=== PATIENT | male | born 1965 | race Caucasian/White ===

== ENCOUNTER → 2025-03-13 11:15 | Outpatient (REF) | payer SELFPAY | LOC: RCS 11:15 | PROVIDERS: ATTENDING PHYSICIAN Physician Assistant; FAMILY PHYSICIAN Family Medicine | DX: R01.1 Cardiac murmur, unspecified (principal); R06.00 Dyspnea, unspecified | CPT/HCPCS: 93017; 93350 ==

== ENCOUNTER → 2025-03-24 08:14 | Outpatient (REF) | payer SELFPAY | LOC: HWRCS 08:14 | PROVIDERS: ATTENDING PHYSICIAN Physician Assistant | DX: R01.1 Cardiac murmur, unspecified (principal) | CPT/HCPCS: 78452; 93017; A9500; J2785 ==